=== PATIENT | female | born 1990 | race African-American/Black ===

== ENCOUNTER 2016-07-27 16:11 | Emergency (ER) | payer OTHER ==
[~2016-07-27] VITALS: Ht 157.5 cm; Wt 55.0 kg
[2016-07-27 16:59] LABS: HEMATOCRIT 38.3 % (36.0-46.0); MCH 28.4 PG (29.0-34.0); MCHC 32.4 G/DL (30.0-36.0); MCV 87.6 FL (83-99); MEAN PLAT.VOLUME 11.1 uM^3 (9.5-12.4); PLATELET COUNT 241 K/uL (156-360); RBC DIS.WIDTH-CV 13.9 % (11.8-14.6); RED BLOOD COUNT 4.37 M/uL (3.80-5.20); WHITE BLOOD COUNT 6.8 K/uL (4.1-10.2)
[2016-07-27 17:12] LABS: CHLORIDE 104 mEq/L (99-109); POTASSIUM 4.5 mEq/L (3.7-5.4); SODIUM 137 mEq/L (136-147)
[2016-07-27 17:14] LABS: GLUCOSE 74 mg/dL (70-99)
[2016-07-27 17:16] LABS: ANION GAP 6 MEQ/L (2-14); TOTAL BILIRUBIN 0.3 mg/dL (0.0-1.0)
[2016-07-27 17:18] LABS: ALKALINE PHOSPHATASE 73 IU/L (3-129); GFR ESTIMATE (CALCULATED) > 59 mL/min/
[2016-07-27 17:19] LABS: UREA NITROGEN (BUN) 12 mg/dL (9-23)
[2016-07-27 17:27] LABS: QUANTITATIVE HCG < 4.0 MIU/ML
[2016-07-27 18:03] LABS: LIPASE 81 U/L (1.0-51.0)
[2016-07-27 18:20] LABS: TROP-I INTERPRETATION NEGATIVE; TROPONIN-I < 0.01 ng/mL (0.0-0.30)
[2016-07-27 19:27] LABS: ADD MIUA? NO; BILIRUBIN NEGATIVE; BLOOD NEGATIVE; COLOR YELLOW ((YELLOW)); GLUCOSE (STRIP) NEGATIVE; KETONES NEGATIVE; LEUKOCYTES NEGATIVE; NITRITE NEGATIVE; PROTEIN (STRIP) NEGATIVE; UCUL ADDED? NO; UROBILINOGEN 0.2 MG/DL (0.2-1.0)
[2016-07-27] MEDS ORDERED: ULTRAM50 MG PO (19:34)
[2016-07-27] MEDS ORDERED: ZANTAC300 MG PO (19:34)
[2016-07-27 19:52] VITALS: BP 108/64
== END 2016-07-27 19:52 | disposition home or self-care (01) ==
LOC: EME 16:11 → EXP 16:11
DX: R10.13 Epigastric pain (principal); K73.9 Chronic hepatitis, unspecified
CPT/HCPCS: 76705; 80053; 81003; 83690; 84484; 84702; 85027; 93005; 99281; 99284

== ENCOUNTER 2016-09-08 19:37 | Emergency (ER) | payer OTHER ==
[~2016-09-08] VITALS: Ht 154.9 cm; Wt 55.7 kg
[~2016-09-08 19:37] MED LIST: ULTRAM50 MG PO; ZANTAC300 MG PO
[2016-09-08 21:45] LABS: HEMATOCRIT 35.4 % (36.0-46.0); MCH 28.4 PG (29.0-34.0); MCHC 33.1 G/DL (30.0-36.0); MCV 85.9 FL (83-99); MEAN PLAT.VOLUME 11.4 uM^3 (9.5-12.4); PLATELET COUNT 183 K/uL (156-360); RBC DIS.WIDTH-CV 13.2 % (11.8-14.6); RBC DIS.WIDTH-SD 41.2 % (39-53); RED BLOOD COUNT 4.12 M/uL (3.80-5.20); WHITE BLOOD COUNT 7.3 K/uL (4.1-10.2)
[2016-09-08 21:56] LABS: CHLORIDE 103 mEq/L (99-109); SODIUM 130 mEq/L (136-147)
[2016-09-08 21:58] LABS: GLUCOSE 96 mg/dL (70-99)
[2016-09-08 21:59] LABS: ANION GAP 8 MEQ/L (2-14)
[2016-09-08 22:02] LABS: GFR ESTIMATE (CALCULATED) > 59 mL/min/
[2016-09-08 22:03] LABS: UREA NITROGEN (BUN) 8 mg/dL (9-23)
[2016-09-08 22:43] LABS: INTERNAL CONTROL VALID? YES; MONOSPOT (MONONUCLEOSIS SEROL) NEGATIVE
[2016-09-08 22:54] LABS: INFLUENZA A VIRAL ANTIGEN NEGATIVE; INFLUENZA B VIRAL ANTIGEN NEGATIVE
[2016-09-08] MEDS ORDERED: MEDROL DOSEPAK4 MG PO (23:09)
[2016-09-08] MEDS ORDERED: REGLAN10 MG PO (23:10)
[2016-09-08] MEDS ORDERED: AMOXICILLIN500 M1 PO (23:10)
[2016-09-08] MEDS ORDERED: LORTAB 5-325 M1 EACH PO (23:10)
[2016-09-08 23:54] VITALS: BP 113/84
[2016-09-09 10:22] LABS: LYME DISEASE SEROLOGY SCREEN NEGATIVE (NEGATIVE)
== END 2016-09-08 23:57 | disposition home or self-care (01) ==
LOC: EME 19:37 → EXP 19:37
PROVIDERS: Emergency Medicine; Nurse Practitioner Family
DX: J02.0 Streptococcal pharyngitis (principal); R53.81 Other malaise; M79.1 Myalgia; R51 Headache
CPT/HCPCS: 70450; 71020; 80048; 81003; 85027; 86308; 86617 90; 86618; 86618 90; 87040; 87207; 87502; 87651 90; 99281; 99285; J0696; J1100; J1170; J1885; J2405; J2765; J7030; J7050